=== PATIENT | female | born 1980 | race Two or more races ===

== ENCOUNTER → 2021-01-15 | Outpatient (CLI) | payer OTHER ==
--- NOTE | 2021-01-15 14:35 | XR ---
EXAMINATION TYPE: XR forearm LT DATE OF EXAM: 01/15/2021 COMPARISON: NONE HISTORY: Pain Two views of the forearm demonstrate that the osseous structures appear to be intact and the joint sp aces appear to be preserved. There is no acute fracture or dislocation. IMPRESSION: 1. No acute fracture or dislocation
== END | disposition home or self-care (01) ==
LOC: RADXRYALE 14:20
PROVIDERS: ATTEND Internal Medicine
DX: M79.602 Pain in left arm (principal)